=== PATIENT | female | born 1945 | race Caucasian/White ===

== ENCOUNTER 2024-02-08 08:08 | Observation (INO) ==
[2024-02-08] MEDS: SODIUM CHLORIDE 1,000 ML IV ONE ×2 (08:20→09:45)
--- NOTE | 2024-02-08 08:28 | ED.PDOC ---
General ED Provider: Dr. CHUCK BROWN MD Chief Complaint: Dizziness Stated Complaint: 78 y/o fm reported to the ED for dizziness and a cough with yellow sputum x 1 days. Pt denies being around any other sick contacts. Pt denied any LOC or trauma to the head. Pt stated that nothing makes her symptoms worse or better. Pt stated that she has not tried any OTC medications for her cough. Pt denied any hemoptysis with her cough. Pt states that her dizziness is intermittent in nature. Pt denied any sore throat, fever, abdominal pain, n/v/d, CP, SOB, or any other acute symptoms not mentioned previously in the HPI. Pt's VS are stable. Pt's GCS 15. Time Seen by Provider: 02/08/24 08:09 Mode of Arrival: Ambulance Information Source: Patient and EMT Exam Limitations: No limitations Nursing and Triage Documentation Reviewed and Agree: Yes Does Patient Take Opioids?: No Is Patient Opioid Naive?: No What is Opioid Naive?: *Opioid Naive implies the patient is not already taking opioids or not chronically receiving opioids on a daily basis. *PRN dosing is not "usually" associated with tolerance. *Patients are at higher risk of over-sedation and aspiration. Is Patient Opioid Tolerant?: No What is Opioid Tolerant?: *Opioid Tolerance implies less than the expected response to an opioid. *Acquired tolerance is defined by the patient taking 60mg of oral morphine daily (or equianalgesic dose of another opioid) for 1 week or more. *Often associated with chronic pain. *May take more than usual dose to achieve desired pain control. Review of Systems Review Of Systems Constitutional: Reports No symptoms Eyes: Reports No symptoms Ears, Nose, Mouth, Throat: Reports No symptoms Respiratory: Reports Cough Cardiac: Reports Other (Dizziness) GI: Reports No symptoms : Reports No symptoms Musculoskeletal: Reports No symptoms Skin: Reports No symptoms Neurological: Reports No symptoms Endocrine: Reports No symptoms Hematologic/Lymphatic: Reports No symptoms All Other Systems: Reviewed and Negative PFSH Female Reproductive History Menstrual Hx Hysterectomy: No Hx Tubal Ligation: No Physical Exam Physical Exam Appearance: Reports Well-appearing, Well-nourished and Thin Ill-appearing: None Pain Distress: None Eyes: Reports JED, EOMI and Conjunctiva clear ENT: Reports Ears normal, Nose normal and Oropharynx normal Neck: Supple Respiratory: Reports Airway patent and Breath sounds clear; Denies Wheezes Cardiovascular: Reports RRR and Pulses normal GI/: Reports Soft and Nontender Musculoskeletal: Reports Normal strength, ROM intact and Other (L mid glut ttp, arom prom BL LE, popliteal and DP pulses 2+/3 BL, no swelling, no deformity) Skin: Reports Warm, Dry and Normal color Neurological: Reports Sensation intact and Motor intact Psychiatric: Reports Affect appropriate and Mood appropriate Course Course 02/08/24 08:29 02/08/24 08:29 Orders, Labs, Meds: Lab Review 02/08/24 02/08/24 08:20 08:29 WBC 8.31 RBC 4.42 Hgb 12.5 Hct 39.7 MCV 89.8 MCH 28.3 MCHC 31.5 L RDW Coeff of Priscilla 13.6 Plt Count 230 Immature Gran % (Auto) 0.5 Neut % (Auto) 69.6 Lymph % (Auto) 21.3 [place] % (Auto) 7.6 Eos % (Auto) 0.6 Baso % (Auto) 0.4 Neut # (Auto) 5.8 Lymph # (Auto) 1.8 [place] # (Auto) 0.6 Eos # (Auto) 0.1 Baso # (Auto) 0.0 Immature Gran # (Auto) 0.0 Sodium 139.2 Potassium 3.86 Chloride 105.3 Carbon Dioxide 27.7 Anion Gap 10.06 BUN 19.6 H Creatinine 0.73 Estimated GFR (MDRD) 77.00 BUN/Creatinine Ratio 26.84 Glucose 152.3 H Lactic Acid 1.15 Calcium 8.18 L Magnesium 1.80 Total Bilirubin 0.43 AST 27.1 ALT 19.1 Alkaline Phosphatase 74.9 Troponin I Pending Total Protein 6.42 Albumin 3.83 Globulin 2.59 Albumin/Globulin Ratio 1.47 Influ A Molecular Assay Negative by naat Influ B Molecular Assay Negative by naat SARS CoV-2 RNA Rapid LEONARDO Negative Orders Category Date Time Status EKG-(ED ONLY) Stat CARDIO 02/08/24 08:15 Completed ED MANUFACTURING ASSISTANT APPLIED .ONCE EMERGENCY 02/08/24 08:15 Active CBC W/ AUTO DIFF Stat LAB 02/08/24 08:29 Completed COMPREHENSIVE METABOLIC PANEL Stat LAB 02/08/24 08:29 Results FLU A/B MOLECULAR Stat LAB 02/08/24 08:20 Completed LACTIC ACID Stat LAB 02/08/24 08:29 Completed MAGNESIUM Stat LAB 02/08/24 08:29 Results SARS COV-2 RNA RAPID LEONARDO Stat LAB 02/08/24 08:20 Completed TROPONIN I Stat LAB 02/08/24 08:29 Results URINALYSIS C & S IF INDICATED Stat LAB 02/08/24 08:17 Uncollected Sodium Chloride 0.9% [Sodium Chloride] 1,000 ml Meds 02/08/24 08:15 Active IV BOLUS CHEST, 1V AP ONLY Stat RADS 02/08/24 08:[address] HEAD W/O CONTRAST Stat RADS 02/08/24 08:17 Ordered Medications Generic Name Dose Route Start Last Admin Trade Name Freq PRN Reason Stop Dose Admin Sodium Chloride 1,000 mls @ 1,000 mls/hr 02/08/24 08:15 02/08/24 08:20 Sodium Chloride IV 02/08/24 09:14 1,000 mls/hr BOLUS ONE Administration Vital Signs: Temp Pulse Resp BP Pulse Ox 02/08/24 08:09 97.6 F 75 20 181/85 H 100 ROMIE Risk Score ROMIE Risk Score: Risk Score Odds of by 30D 0 0.1 (0.1-0.2) 1 0.3 (0.2-0.3) 2 0.4 (0.3-0.5) 3 0.7 (0.6-0.9) 4 1.2 (1.0-1.5) 5 2.2 (1.9-2.6) 6 3.0 (2.5-3.6) 7 4.8 (3.8-6.1) Physician Progress Note: 78 y/o fm reported to the ED for dizziness and a cough with yellow sputum x 1 days. Pt denies being around any other sick contacts. Pt denied any LOC or trauma to the head. Pt stated that nothing makes her symptoms worse or better. Pt stated that she has not tried any OTC medications for her cough. Pt denied any hemoptysis with her cough. Pt states that her dizziness is intermittent in nature. Pt denied any sore throat, fever, abdominal pain, diarrhea, CP, SOB, or any other acute symptoms not mentioned previously in the HPI. Pt's VS are stable. Pt's GCS 15. -Will order CT of the head for pt's dizziness. NIH score is zero. -Will order IV NS 1 L bolus for dehydration. -Will order EKG, trop, and baseline labs. -Will order CXR for cough to rule out PNA or other pathology. -CBC unremarkable. -EKG shows normal sinus rhythm with a rate of 70 bpm. [place] interval 132 ms, QRS 80 ms, QTc 481 ms, minimal voltage for LVH, and no acute ST elevations noted. This was interpreted by the ER physician. -BUN 19 showing that patient slightly dehydrated. We have given the patient normal saline bolus. Otherwise CMP unremarkable. -Chest x-ray shows no acute cardiopulmonary disease. This was interpreted by the ER physician. -Patient's troponin is negative. -CT of the head shows no acute pathology or hemorrhage. -Will run IV 1 L normal saline at 125 mL an hour for gentle hydration. -0900: Spoke to hospitalist at [facility], Ameya Sahu NP who is agreed to admit the patient for dehydration. I have given the patient's current treatment and any pending labs. Ameya has agreed to accept accept this patient for observation inpatient. Discharge Plan Discharge Patient Disposition: PLACED OBSERVATION Discharge Problem: Dizziness, Dehydration, Essential hypertension Did you review [place] [employer] for ALL controlled substances?: Not Applicable ED Provider: CHUCK BROWN Condition: Stable
[2024-02-08 08:32] LABS: BASOPHILS % (AUTO) 0.4 % (0.0-3.0); EOSINOPHILS # (AUTO) 0.1 K/ul (0.0-0.7); EOSINOPHILS % (AUTO) 0.6 % (0.0-7.0); HEMATOCRIT 39.7 % (37.0-47.0); HEMOGLOBIN 12.5 g/dl (12.0-16.0); IMMATURE GRANULOCYTE % (AUTO) 0.5 % (0.0-5.0); LYMPHOCYTES # (AUTO) 1.8 K/uL (0.60-3.4); LYMPHOCYTES % (AUTO) 21.3 (10.0-50.0); MEAN CORPUSCULAR HEMOGLOBIN 28.3 pg (27.0-31.0); MEAN CORPUSCULAR HGB CONC 31.5 (31.8-35.4); MEAN CORPUSCULAR VOLUME 89.8 fl (81.0-99.0); MONOCYTES # (AUTO) 0.6 K/uL (0.4-2.0); MONOCYTES % (AUTO) 7.6 (0-10); NEUTROPHILS # (AUTO) 5.8 K/ul (2.0-6.9); NEUTROPHILS % (AUTO) 69.6 % (42.2-75.2); PLATELET COUNT 230 10^3/uL (140-440); RDW COEFFICIENT OF VARIATION 13.6 % (11.6-14.8); RED BLOOD COUNT 4.42 10^6/ul (4.20-5.40); WHITE BLOOD COUNT 8.31 K/ul (4.6-10.2)
[2024-02-08 08:46] LABS: SARS COV-2 RNA RAPID NAAT NEGATIVE (NEGATIVE)
[2024-02-08 08:48] LABS: MOLECULAR FLU A NEGATIVE BY NAAT (NEGATIVE); MOLECULAR FLU B NEGATIVE BY NAAT (NEGATIVE)
[2024-02-08 08:48] LABS: ALANINE AMINOTRANSFERASE 19.1 U/L (0-35); ALBUMIN 3.83 g/dL (3.5-5.0); ALKALINE PHOSPHATASE 74.9 U/L (53-141); ASPARTATE AMINO TRANSFERASE 27.1 U/L (14-36); BILIRUBIN,TOTAL 0.43 mg/dL (0.2-1.3); BLOOD UREA NITROGEN 19.6 mg/dL (7-17); CALCIUM 8.18 mg/dL (8.4-10.2); CARBON DIOXIDE 27.7 mmol/L (22-30.0); CHLORIDE 105.3 mmol/L (98-107); CREATININE 0.73 mg/dL (0.60-1.30); GLUCOSE 152.3 mg/dL (74-106); POTASSIUM 3.86 mmol/L (3.5-5.1); SODIUM 139.2 mmol/L (134.5-145); TOTAL PROTEIN 6.42 g/dL (6.3-8.2)
--- NOTE | 2024-02-08 08:59 | DI ---
EXAM: CHEST RADIOGRAPH TECHNIQUE: Single frontal chest radiograph. HISTORY: Cough. COMPARISON: 03/19/2023 FINDINGS: The patient is mildly leaning and rotated to the right. EKG leads project over the chest. The lungs are hyperexpanded, as before. No pulmonary infiltrate is identified. No pleural effusion or pneumothorax is seen. Stable mild biapical pleural thickening. Borderline cardiomegaly. No acute displaced rib fractures are identified. IMPRESSION: 1. No acute findings in the chest.
[2024-02-08 09:02] LABS: TROPONIN I < 0.012 ng/ml (0.0000-0.120)
--- NOTE | 2024-02-08 09:15 | CT ---
EXAMINATION: HEAD CT WITHOUT CONTRAST HISTORY: Dizziness. TECHNIQUE: Noncontrast CT of the brain was performed with images acquired from skull base to vertex. 2-D coronal and sagittal reformatted images were obtained from the axial source images. Contrast Dose: None. CT Dose Reduction Techniques Performed: Yes. COMPARISON: None. FINDINGS: No intracranial hemorrhage or significant extra-axial fluid collection. No region of abnormal low attenuation in the brain. Huddleston white differentiation is preserved. No mass effect or midline shift. No hydrocephalus. Bilateral cataract surgery. The visualized mastoid air cells and paranasal sinuses are clear. IMPRESSION: 1. No acute intracranial findings. All CT scans are performed using dose optimization techniques as appropriate to the performed exam an d include at least one of the following: Automated exposure control, adjustment of the mA and/or kV according t o size, and the use of iterative reconstruction technique.
[2024-02-08 09:31] LABS: BILIRUBIN,URINE Negative (NEGATIVE); CLARITY,URINE Clear (CLEAR); COLOR,URINE Yellow (YELLOW); GLUCOSE, URINE (UA) Negative (NEGATIVE); KETONES,URINE Trace (NEGATIVE); LEUKOCYTE ESTERASE ,URINE Negative (NEGATIVE); NITRITE,URINE Negative (NEGATIVE); PH,URINE 7.5 (5-9); PROTEIN,URINE Negative (NEGATIVE); URINE, BLOOD Negative (NEGATIVE); UROBILINOGEN,URINE 0.2 (0.2)
[2024-02-08] MEDS: ANTIVERT PO STA (10:20)
[2024-02-08 13:58] VITALS: BMI 17.0
[2024-02-08] MEDS ORDERED: TYLENOL PO PRN (14:52)
[2024-02-08] MEDS ORDERED: ZOFRAN 4 MG/2 ML IVP PRN (14:52)
[2024-02-08] MEDS ORDERED: SODIUM CHLORIDE 1,000 ML IV SCH (15:00)
[2024-02-08] MEDS: COMPAZINE PO PRN (16:16)
--- NOTE | 2024-02-08 17:03 | PCM ---
Date of Service Date Seen by Provider: 02/08/24 Time Seen by Provider: 14:15 Admit Day/Time Admission Date: 02/08/24 Reason for Admission Chief Complaint: DEHYDRATION, DIZZINESS Hospital Provider Hospital Provider[facility] History of Present Illness History of Present Illness: 78 yo female presented to the ER with dizziness. States she has been dizzy since yesterday. Reports she was concerned she had Covid but no other symptoms reported. Covid negative in ER. Denies history of vertigo. States she has been nauseated because of the dizziness and unable to eat. Describes the dizziness as the room spinning. Improves when she closes her eyes. Received meclizine in the ER without relief. No acute findings on lab work other than a minimally elevated BUN. BP was elevated in ER and continues to be elevated on admission. No previous history of HTN. Denies any chest pain, palpitations, sob, blurry vision, fever, chills, or other symptoms. Admitted to med/surg observation. Case Discussed With Case Discussed With: Patient's case was discussed with the ER Physicians, Dr. Garcia. [facility] Medical History Ovarian cyst, left N83.202 - Unspecified ovarian cyst, left side (ICD-10) Sciatica, left side M54.32 - Sciatica, left side (ICD-10) Age related osteoporosis M81.0 - Age-related osteoporosis without current pathological fracture (ICD- 10) Diverticulosis K57.90 - Diverticulosis of intestine, part unspecified, without perforation or abscess without bleeding (ICD-10) Hyperlipidemia E78.5 - Hyperlipidemia, unspecified (ICD-10) Family History Other No pertinent family history Social History Smoking and tobacco status: Never smoker Allergies Allergies Allergy/AdvReac Type Severity Reaction Status Date / Time Sulfa (Sulfonamide AdvReac Verified 02/08/24 08:13 Antibiotics) Current Medications Home Medications multivitamin 1 cap PO DAILY 07/10/15 [History Confirmed 02/08/24 Last Taken Unknown] psyllium husk 6 gram oral powder packet (Konsyl Sugar-Free) 1 packet PO DAILY 07/10/15 [History Confirmed 02/08/24 Last Taken Unknown] aspirin 81 mg capsule 81 mg PO DAILY 02/08/24 [History Confirmed 02/08/24 Last Taken Unknown] calcium carbonate 1,200 mg PO DAILY 02/08/24 [History Confirmed 02/08/24 Last Taken Unknown] cholecalciferol (vitamin D3) 125 mcg (5,000 unit) tablet (Vitamin D3) 125 mcg PO DAILY 02/08/24 [History Confirmed 02/08/24 Last Taken Unknown] magnesium 200 mg tablet 400 mg PO EVERY OTHER DAY 02/08/24 [History Confirmed 02/08/24 Last Taken Unknown] rosuvastatin 20 mg tablet 20 mg PO BEDTIME 02/08/24 [History Confirmed 02/08/24 Last Taken Unknown] vitamins A,C,B-jajj-uyfndp 2,148 mcg-113 mg-45 mg-17.4 mg tablet (Eye Multivitamin) 2 tab PO DAILY 02/08/24 [History Confirmed 02/08/24 Last Taken Unknown] Home Acetaminophen (Acetaminophen 325 Mg Tablet) 650 mg PO Q4H PRN PRN Reason: Mild Pain Aspirin (Aspirin 81 Mg Tablet.Dr) 81 mg PO DAILYWM2 EZRA Cholecalciferol (Cholecalciferol (Vitamin D3) 1,000 Unit (25 Mcg) Tablet) 5,000 unit PO DAILY EZRA Multivitamins (Multivitamin 1 Tab) 1 tab PO DAILY EZRA Ondansetron HCl (Ondansetron Hcl/Pf 4 Mg/2 Ml Sdv) 4 mg IVP Q6H PRN PRN Reason: Nausea / Vomiting Prochlorperazine Maleate (Prochlorperazine Maleate 10 Mg Tablet) 5 mg PO TID PRN PRN Reason: Vertigo Last Admin: 02/08/24 16:16 Dose: 5 mg Psyllium Hydrophilic Mucilloid (Psyllium Seed 6 Gm Packet) 1 packet PO 1200 EZRA Rosuvastatin Calcium (Rosuvastatin Calcium 10 Mg Tablet) 20 mg PO BEDTIME EZRA Discontinued Medications Sodium Chloride (Sodium Chloride) 1,000 mls @ 1,000 mls/hr IV BOLUS ONE Stop: 02/08/24 09:14 Last Infusion: 02/08/24 09:48 Dose: Infused Sodium Chloride (Sodium Chloride) 1,000 mls @ 125 mls/hr IV .Q8H ONE Stop: 02/08/24 17:13 Last Admin: 02/08/24 09:45 Dose: 125 mls/hr Lisinopril (Lisinopril 10 Mg Tablet) 20 mg PO ONCE ONE Stop: 02/08/24 16:51 Meclizine HCl (Meclizine Hcl 25 Mg Tablet) 25 mg PO ONCE STA Stop: 02/08/24 10:12 Last Admin: 02/08/24 10:20 Dose: 25 mg Opioid Naive vs. Tolerant Does Patient Take Opioids?: No Is Patient Opioid Naive?: Yes What is Opioid Naive?: *Opioid Naive implies the patient is not already taking opioids or not chronically receiving opioids on a daily basis. *PRN dosing is not "usually" associated with tolerance. *Patients are at higher risk of over-sedation and aspiration. Is Patient Opioid Tolerant?: No What is Opioid Tolerant?: *Opioid Tolerance implies less than the expected response to an opioid. *Acquired tolerance is defined by the patient taking 60mg of oral morphine daily (or equianalgesic dose of another opioid) for 1 week or more. *Often associated with chronic pain. *May take more than usual dose to achieve desired pain control. Review of Systems Constitutional: Reports No symptoms Head: Reports Normocephalic Eyes: Reports No symptoms Ears: Reports No symptoms Nose: Reports No symptoms Mouth: Reports No symptoms Throat: Reports No symptoms Cardiovascular: Reports No symptoms Respiratory: Reports No symptoms Gastrointestinal: Reports No symptoms Genitourinary: Reports No Symptoms Musculoskeletal: Reports No symptoms Endocrine: Reports No symptoms Hematology: Reports No symptoms Immunology: Reports No symptoms Neurological: Reports Dizziness Psychiatric: Reports No symptoms Physical examination Most Recent Vital Signs: Most Recent Vital Signs Temperature 97.8 F 02/08/24 13:25 Temperature Source Temporal Artery Scan 02/08/24 13:25 Temperature Source Infrared 02/08/24 08:09 Pulse Rate 88 02/08/24 13:25 Respiratory Rate 18 02/08/24 13:25 Blood Pressure 181/85 H 02/08/24 08:09 Blood Pressure Left Arm 171/76 02/08/24 13:25 Blood Pressure Position Sitting 02/08/24 13:25 O2 Sat by Pulse Oximetry 100 02/08/24 13:25 Oxygen Delivery Method Room Air 02/08/24 16:00 Height 5 ft 3 in 02/08/24 13:25 Weight 43.7 kg 02/08/24 13:25 Telemetry Type Bedside Monitor 02/08/24 13:00 Telemetry Monitoring Started 02/08/24 13:00 Telemetry Heart Rate 78 02/08/24 13:00 EKG FL Interval 0.13 02/08/24 13:00 EKG QRS Interval 0.06 02/08/24 13:00 Telemetry Strip Reading SR 02/08/24 13:00 Appearance: Positive No Apparent Distress, Alert and Oriented x3 and Thin Skin: Positive Warm and Good Turgor HEENT: Positive Normocephalic and PERRLA Neck: Positive Supple and Midline Trachea Chest/Lungs: Positive Symmetrical With Equal Breath Sounds, Clear to Auscultation Bilaterally and Good Air Movement all 4 Lung Nolan Heart: Positive RRR and Pulses Normal GI/: Positive Soft, Nontender, Bowel Sounds Normal and No Distention Musculoskeletal: Positive Normal Gait and Station Extremities: Positive Intact Peripheral Pulses, Stable Joints Without Laxity and Good ROM in All Joints Neurological: Positive Sensation Intact, Motor intact, Alert, Oriented and Muscle Strength 5/5 in Upper and Lower Extremities Bilaterally Labs This Visit Labs This Visit: Labs This Visit 02/08/24 02/08/24 02/08/24 08:20 08:29 09:25 WBC 8.31 RBC 4.42 Hgb 12.5 Hct 39.7 MCV 89.8 MCH 28.3 MCHC 31.5 L RDW Coeff of Priscilla 13.6 Plt Count 230 Immature Gran % (Auto) 0.5 Neut % (Auto) 69.6 Lymph % (Auto) 21.3 [place] % (Auto) 7.6 Eos % (Auto) 0.6 Baso % (Auto) 0.4 Neut # (Auto) 5.8 Lymph # (Auto) 1.8 [place] # (Auto) 0.6 Eos # (Auto) 0.1 Baso # (Auto) 0.0 Immature Gran # (Auto) 0.0 Sodium 139.2 Potassium 3.86 Chloride 105.3 Carbon Dioxide 27.7 Anion Gap 10.06 BUN 19.6 H Creatinine 0.73 Estimated GFR (MDRD) 77.00 BUN/Creatinine Ratio 26.84 Glucose 152.3 H Lactic Acid 1.15 Calcium 8.18 L Magnesium 1.80 Total Bilirubin 0.43 AST 27.1 ALT 19.1 Alkaline Phosphatase 74.9 Troponin I < 0.012 Total Protein 6.42 Albumin 3.83 Globulin 2.59 Albumin/Globulin Ratio 1.47 Urine Color Yellow Urine Clarity Clear Urine pH 7.5 Ur Specific [place] 1.025 Urine Protein Negative Urine Glucose (UA) Negative Urine Ketones Trace H Urine Blood Negative Urine Nitrite Negative Urine Bilirubin Negative Urine Urobilinogen 0.2 Ur Leukocyte Esterase Negative Influ A Molecular Assay Negative by naat Influ B Molecular Assay Negative by naat SARS CoV-2 RNA Rapid LEONARDO Negative Imaging Imaging: EXAMINATION: HEAD CT WITHOUT CONTRAST FINDINGS: No intracranial hemorrhage or significant extra-axial fluid collection. No region of abnormal low attenuation in the brain. Huddleston white differentiation is preserved. No mass effect or midline shift. No hydrocephalus. Bilateral cataract surgery. The visualized mastoid air cells and paranasal sinuses are clear. IMPRESSION: 1. No acute intracranial findings. EXAM: CHEST RADIOGRAPH FINDINGS: The patient is mildly leaning and rotated to the right. EKG leads project over the chest. The lungs are hyperexpanded, as before. No pulmonary infiltrate is identified. No pleural effusion or pneumothorax is seen. Stable mild biapical pleural thickening. Borderline cardiomegaly. No acute displaced rib fractures are identified. IMPRESSION: 1. No acute findings in the chest. Review Statement Review Statement: I have independently reviewed and interpreted the labs/EKGs/imaging that were ordered by the ER provider. I have reviewed all outside records that are available currently in our EMR including imaging/notes/labs from previous visits. Plan Plan: 1. Dizziness - unknown etiology, attempted meclizine - no relief, will add compazine prn, NS@75mL/hr initially - d/c due to hypertension noted 2. Hypertension - no previous history, will trial dose of lisinopril 20 mg PO - subject to change if ineffective 3. Hyperlipidemia - chronic, continue home medications DVT Prophylaxis: Ambulation Time Spent: Greater than 80 minutes spent with patient, 50% of the time spent with this patient was devoted to counseling and coordination of care. [facility] minutes spent discussing advance care planning. Disposition: Admit to: Med/Surg Observation Full Code Discussed Plan of Care with Dr. Pedro Garrido. Medications Medication Orders: Medications Ordered Category Date Time Status Acetaminophen [Tylenol] Meds 02/08/24 14:52 Active 650 mg PO Q4H PRN Aspirin [Aspirin EC] Meds 02/09/24 07:30 Active 81 mg PO DAILYWM2 Cholecalciferol (Vitamin D3) [Vitamin D] Meds 02/09/24 09:00 Active 5,000 unit PO DAILY Multivitamin [Multivitamin Tablet] Meds 02/09/24 09:00 Active 1 tab PO DAILY Ondansetron HCl/Pf [Zofran 4 mg/2 ml] Meds 02/08/24 14:52 Active 4 mg IVP Q6H PRN Prochlorperazine Maleate [Compazine] Meds 02/08/24 14:52 Active 5 mg PO TID PRN Psyllium Seed [Metamucil] Meds 02/09/24 12:00 Active 1 packet PO 1200 Rosuvastatin Calcium [Crestor] Meds 02/08/24 21:00 Active 20 mg PO BEDTIME
[2024-02-08] MEDS: ZESTRIL PO ONE (17:23)
[2024-02-08] MEDS: CRESTOR PO SCH (20:19)
[2024-02-08] MEDS: HYDRALAZINE HCL IVP PRN (21:07)
[2024-02-09 05:37] LABS: BASOPHILS % (AUTO) 0.2 % (0.0-3.0); EOSINOPHILS # (AUTO) 0.1 K/ul (0.0-0.7); EOSINOPHILS % (AUTO) 0.5 % (0.0-7.0); HEMATOCRIT 41.8 % (37.0-47.0); HEMOGLOBIN 13.1 g/dl (12.0-16.0); IMMATURE GRANULOCYTE % (AUTO) 0.3 % (0.0-5.0); LYMPHOCYTES # (AUTO) 2.2 K/uL (0.60-3.4); MEAN CORPUSCULAR HEMOGLOBIN 27.9 pg (27.0-31.0); MEAN CORPUSCULAR HGB CONC 31.3 (31.8-35.4); MEAN CORPUSCULAR VOLUME 89.1 fl (81.0-99.0); MONOCYTES # (AUTO) 1.3 K/uL (0.4-2.0); MONOCYTES % (AUTO) 12.2 (0-10); NEUTROPHILS # (AUTO) 6.8 K/ul (2.0-6.9); NEUTROPHILS % (AUTO) 65.8 % (42.2-75.2); PLATELET COUNT 255 10^3/uL (140-440); RED BLOOD COUNT 4.69 10^6/ul (4.20-5.40); WHITE BLOOD COUNT 10.38 K/ul (4.6-10.2)
[2024-02-09 05:53] LABS: ALBUMIN 3.99 g/dL (3.5-5.0); ALKALINE PHOSPHATASE 75.8 U/L (53-141); ASPARTATE AMINO TRANSFERASE 29.2 U/L (14-36); BILIRUBIN,TOTAL 0.61 mg/dL (0.2-1.3); BLOOD UREA NITROGEN 15.5 mg/dL (7-17); CALCIUM 8.57 mg/dL (8.4-10.2); CARBON DIOXIDE 26.9 mmol/L (22-30.0); CHLORIDE 105.3 mmol/L (98-107); CREATININE 0.85 mg/dL (0.60-1.30); GLUCOSE 103.3 mg/dL (74-106); POTASSIUM 3.6 mmol/L (3.5-5.1); SODIUM 138.1 mmol/L (134.5-145); TOTAL PROTEIN 6.61 g/dL (6.3-8.2)
[2024-02-09] MEDS: COZAAR PO SCH (08:23)
[2024-02-09] MEDS: ASPIRIN EC PO SCH (08:23)
[2024-02-09] MEDS: MULTIVITAMIN TABLET PO SCH (08:24)
[2024-02-09] MEDS: VITAMIN D PO SCH (08:25)
[2024-02-09] MEDS ORDERED: COZAAR PO SCH (09:00)
[2024-02-09] MEDS ORDERED: NON-FORMULARY MEDICATION (Aspirin 81 mg capsule) PO SCH (09:00)
[2024-02-09] MEDS ORDERED: MULTIVITAMIN TABLET PO SCH (09:00)
[2024-02-09] MEDS: METAMUCIL PO SCH (12:22)
[2024-02-09] MEDS: COZAAR PO ONE (12:23)
[2024-02-09] MEDS ORDERED: NORVASC PO ONE (14:05)
--- NOTE | 2024-02-09 16:24 | PCM.PROG ---
Date/Time Seen Date Seen by Provider: 02/09/24 Time Seen by Provider: 08:30 Provider Provider: MORIS KIRAN, [facility] Chief Complaint Chief Complaint: DEHYDRATION, DIZZINESS Subjective Subjective: Feeling some better today. BP has increased again this am. Dizziness still present at this time. Objective Appearance: Positive No Apparent Distress and Alert and Oriented x3 Chest/Lungs: Positive Symmetrical With Equal Breath Sounds, Clear to Auscultati on Bilaterally and Good Air Movement all 4 Lung Nolan Heart: Positive RRR and Pulses Normal GI/: Positive Soft, Nontender, Bowel Sounds Normal and No Distention Musculoskeletal: Positive Not Examined Neurological: Positive Sensation Intact, Motor intact, Alert and Oriented Vital Signs Vital Signs: Vital Signs: Last 24 Hours 02/08/24 17:00 02/08/24 17:41 02/08/24 17:42 Temperature 98.1 F Temperature Source Temporal Artery Scan Pulse Rate 84 Pulse Rate [Apical] Respiratory Rate 16 Blood Pressure 183/85 H Blood Pressure Mean 117 Blood Pressure Location Left Arm Blood Pressure Position O2 Sat by Pulse Oximetry 99 Oxygen Delivery Method Room Air Room Air Room Air Telemetry Type Telemetry Monitoring Telemetry Heart Rate EKG VT Interval EKG QRS Interval Telemetry Strip Reading 02/08/24 17:59 02/08/24 19:00 02/08/24 19:55 Temperature Temperature Source Pulse Rate Pulse Rate [Apical] Respiratory Rate Blood Pressure Blood Pressure Mean Blood Pressure Location Blood Pressure Position O2 Sat by Pulse Oximetry Oxygen Delivery Method Room Air Room Air Telemetry Type Bedside Monitor Telemetry Monitoring Started Telemetry Heart Rate 91 EKG VT Interval 0.12 EKG QRS Interval 0.08 Telemetry Strip Reading SR 02/08/24 20:52 02/08/24 22:00 02/08/24 22:00 Temperature 98.9 F Temperature Source Temporal Artery Scan Pulse Rate 99 Pulse Rate [Apical] Respiratory Rate 18 Blood Pressure 136/47 L Blood Pressure Mean 76 Blood Pressure Location Right Arm Blood Pressure Position Supine O2 Sat by Pulse Oximetry 96 Oxygen Delivery Method Room Air Room Air Room Air Telemetry Type Telemetry Monitoring Telemetry Heart Rate EKG VT Interval EKG QRS Interval Telemetry Strip Reading 02/08/24 23:00 02/09/24 00:00 02/09/24 01:00 Temperature Temperature Source Pulse Rate Pulse Rate [Apical] Respiratory Rate Blood Pressure Blood Pressure Mean Blood Pressure Location Blood Pressure Position O2 Sat by Pulse Oximetry Oxygen Delivery Method Room Air Room Air Room Air Telemetry Type Telemetry Monitoring Telemetry Heart Rate EKG VT Interval EKG QRS Interval Telemetry Strip Reading 02/09/24 01:00 02/09/24 02:00 02/09/24 02:00 Temperature 97.6 F Temperature Source Temporal Artery Scan Pulse Rate 70 Pulse Rate [Apical] Respiratory Rate 15 Blood Pressure 119/49 L Blood Pressure Mean 72 Blood Pressure Location Left Arm Blood Pressure Position Supine O2 Sat by Pulse Oximetry 97 Oxygen Delivery Method Room Air Room Air Telemetry Type Bedside Monitor Telemetry Monitoring Started Telemetry Heart Rate 73 EKG VT Interval 0.14 EKG QRS Interval 0.08 Telemetry Strip Reading SR 02/09/24 03:00 02/09/24 04:00 02/09/24 05:00 Temperature Temperature Source Pulse Rate Pulse Rate [Apical] Respiratory Rate Blood Pressure Blood Pressure Mean Blood Pressure Location Blood Pressure Position O2 Sat by Pulse Oximetry Oxygen Delivery Method Room Air Room Air Room Air Telemetry Type Telemetry Monitoring Telemetry Heart Rate EKG VT Interval EKG QRS Interval Telemetry Strip Reading 02/09/24 05:29 02/09/24 06:00 02/09/24 07:00 Temperature 97.2 F L Temperature Source Temporal Artery Scan Pulse Rate 87 Pulse Rate [Apical] Respiratory Rate 16 Blood Pressure 119/58 L Blood Pressure Mean 78 Blood Pressure Location Left Arm Blood Pressure Position Supine O2 Sat by Pulse Oximetry 96 Oxygen Delivery Method Room Air Room Air Telemetry Type Bedside Monitor Telemetry Monitoring Telemetry Heart Rate 77 EKG VT Interval 0.12 EKG QRS Interval 0.08 Telemetry Strip Reading NSR 02/09/24 07:00 02/09/24 08:00 02/09/24 08:00 Temperature Temperature Source Pulse Rate Pulse Rate [Apical] 92 Respiratory Rate 16 Blood Pressure Blood Pressure Mean Blood Pressure Location Blood Pressure Position O2 Sat by Pulse Oximetry Oxygen Delivery Method Room Air Room Air Room Air Telemetry Type Telemetry Monitoring Telemetry Heart Rate EKG VT Interval EKG QRS Interval Telemetry Strip Reading 02/09/24 08:16 02/09/24 09:00 02/09/24 09:42 Temperature Temperature Source Pulse Rate 94 Pulse Rate [Apical] Respiratory Rate Blood Pressure 167/66 H 171/75 H Blood Pressure Mean Blood Pressure Location Right Arm Right Arm Blood Pressure Position Supine Sitting O2 Sat by Pulse Oximetry Oxygen Delivery Method Room Air Telemetry Type Telemetry Monitoring Telemetry Heart Rate EKG VT Interval EKG QRS Interval Telemetry Strip Reading 02/09/24 09:42 02/09/24 10:00 02/09/24 10:00 Temperature 99.3 F Temperature Source Temporal Artery Scan Pulse Rate 101 H 93 Pulse Rate [Apical] Respiratory Rate 16 Blood Pressure 172/70 H 150/63 H Blood Pressure Mean 92 Blood Pressure Location Right Arm Right Arm Blood Pressure Position Standing Supine O2 Sat by Pulse Oximetry 97 Oxygen Delivery Method Room Air Room Air Telemetry Type Telemetry Monitoring Telemetry Heart Rate EKG VT Interval EKG QRS Interval Telemetry Strip Reading 02/09/24 11:00 02/09/24 12:00 02/09/24 13:00 Temperature Temperature Source Pulse Rate Pulse Rate [Apical] Respiratory Rate Blood Pressure Blood Pressure Mean Blood Pressure Location Blood Pressure Position O2 Sat by Pulse Oximetry Oxygen Delivery Method Room Air Room Air Room Air Telemetry Type Telemetry Monitoring Telemetry Heart Rate EKG VT Interval EKG QRS Interval Telemetry Strip Reading 02/09/24 13:00 02/09/24 14:00 02/09/24 14:00 Temperature 98 F Temperature Source Temporal Artery Scan Pulse Rate 100 Pulse Rate [Apical] Respiratory Rate 16 Blood Pressure 171/69 H Blood Pressure Mean 103 Blood Pressure Location Right Arm Blood Pressure Position Supine O2 Sat by Pulse Oximetry 97 Oxygen Delivery Method Room Air Room Air Telemetry Type Bedside Monitor Telemetry Monitoring Telemetry Heart Rate 110 H EKG VT Interval 0.14 EKG QRS Interval 0.09 Telemetry Strip Reading Sinus Tachycardia 02/09/24 15:00 02/09/24 16:00 Temperature Temperature Source Pulse Rate Pulse Rate [Apical] Respiratory Rate Blood Pressure Blood Pressure Mean Blood Pressure Location Blood Pressure Position O2 Sat by Pulse Oximetry Oxygen Delivery Method Room Air Room Air Telemetry Type Telemetry Monitoring Telemetry Heart Rate EKG VT Interval EKG QRS Interval Telemetry Strip Reading Lab Results Lab Results: Lab Results: Last 24 Hours 02/09/24 05:29 WBC 10.38 H RBC 4.69 Hgb 13.1 Hct 41.8 MCV 89.1 MCH 27.9 MCHC 31.3 L RDW Coeff of Priscilla 14.0 Plt Count 255 Immature Gran % (Auto) 0.3 Neut % (Auto) 65.8 Lymph % (Auto) 21.0 [place] % (Auto) 12.2 H Eos % (Auto) 0.5 Baso % (Auto) 0.2 Neut # (Auto) 6.8 Lymph # (Auto) 2.2 [place] # (Auto) 1.3 Eos # (Auto) 0.1 Baso # (Auto) 0.0 Immature Gran # (Auto) 0.0 Sodium 138.1 Potassium 3.60 Chloride 105.3 Carbon Dioxide 26.9 Anion Gap 9.50 BUN 15.5 Creatinine 0.85 Estimated GFR (MDRD) 64.00 BUN/Creatinine Ratio 18.23 Glucose 103.3 Calcium 8.57 Total Bilirubin 0.61 AST 29.2 ALT 19.0 Alkaline Phosphatase 75.8 Total Protein 6.61 Albumin 3.99 Globulin 2.62 Albumin/Globulin Ratio 1.52 Additional Comments Additional Comments: I have independently reviewed and interpreted the labs/EKGs/imaging ordered during this hospital stay. I have reviewed outside records that are available in our EMR that pertain to medical stay including imaging/notes/labs from previous visits. Active Medications Active Medications: Medications Generic Name Dose Route Start Last Admin Trade Name Freq PRN Reason Stop Dose Admin Acetaminophen 650 mg 02/08/24 14:52 Acetaminophen 325 Mg Tablet PO Q4H PRN Mild Pain Alprazolam 0.25 mg 02/09/24 15:23 Alprazolam 0.25 Mg Tablet PO BID PRN Dizziness Aspirin 81 mg 02/09/24 07:30 02/09/24 08:23 Aspirin 81 Mg Tablet. PO 81 mg DAILYWM2 EZRA Administration Cholecalciferol 5,000 unit 02/09/24 09:00 02/09/24 08:25 Cholecalciferol (Vitamin D3) 1,000 Unit (25 Mcg) Tablet PO 5,000 unit DAILY EZRA Administration Hydralazine HCl 10 mg 02/08/24 20:42 02/08/24 21:07 Hydralazine Hcl 20 Mg/Ml Sdv IVP 10 mg Q6H PRN Administration Hypertension Losartan Potassium 25 mg 02/09/24 09:00 02/09/24 08:23 Losartan Potassium 25 Mg Tablet PO 25 mg DAILY EZRA Administration Multivitamins 1 tab 02/09/24 09:00 02/09/24 08:24 Multivitamin 1 Tab PO 1 tab DAILY EZRA Administration Ondansetron HCl 4 mg 02/08/24 14:52 Ondansetron Hcl/Pf 4 Mg/2 Ml Sdv IVP Q6H PRN Nausea / Vomiting Prochlorperazine Maleate 5 mg 02/08/24 14:52 02/09/24 08:39 Prochlorperazine Maleate 10 Mg Tablet PO 5 mg TID PRN Administration Vertigo Psyllium Hydrophilic Mucilloid 1 packet 02/09/24 12:00 02/09/24 12:22 Psyllium Seed 6 Gm Packet PO 1 packet 1200 EZRA Administration Rosuvastatin Calcium 20 mg 02/08/24 21:00 02/08/24 20:19 Rosuvastatin Calcium 10 Mg Tablet PO 20 mg BEDTIME EZRA Administration Plan Plan: 1. Dizziness - Unchanged, worsens with hypertension, adjusting BP meds, compazine prn, orthostatic VS negative 2. Hypertension - no previous history, lisinopril ineffective, hydralazine given around 2100 last night and dropped BP appropriately, losartan 25 mg given this am with minimal response, additional 25 mg given around noon and has lowered BP well - still reporting dizziness on standing 3. Hyperlipidemia - chronic, continue home medications DVT Prophylaxis: Ambulation Review Statement Review Statement: I have personally discussed and reviewed the patient's visit/currently labs/imaging/decision making with Dr. Garrido, my supervising attending. Greater that 50 minutes spent with patient, 50% of the time spent with this patient was devoted to counseling and coordination of care.
[2024-02-09] MEDS: XANAX PO PRN (21:05)
[2024-02-10 05:49] LABS: BASOPHILS % (AUTO) 0.4 % (0.0-3.0); EOSINOPHILS # (AUTO) 0.1 K/ul (0.0-0.7); EOSINOPHILS % (AUTO) 0.9 % (0.0-7.0); HEMATOCRIT 40.8 % (37.0-47.0); HEMOGLOBIN 12.9 g/dl (12.0-16.0); IMMATURE GRANULOCYTE % (AUTO) 0.2 % (0.0-5.0); LYMPHOCYTES # (AUTO) 2.5 K/uL (0.60-3.4); LYMPHOCYTES % (AUTO) 31.2 (10.0-50.0); MEAN CORPUSCULAR HEMOGLOBIN 28.1 pg (27.0-31.0); MEAN CORPUSCULAR HGB CONC 31.6 (31.8-35.4); MEAN CORPUSCULAR VOLUME 88.9 fl (81.0-99.0); MONOCYTES % (AUTO) 12.3 (0-10); NEUTROPHILS # (AUTO) 4.4 K/ul (2.0-6.9); PLATELET COUNT 257 10^3/uL (140-440); RDW COEFFICIENT OF VARIATION 14.1 % (11.6-14.8); RED BLOOD COUNT 4.59 10^6/ul (4.20-5.40); WHITE BLOOD COUNT 8.04 K/ul (4.6-10.2)
[2024-02-10 06:04] LABS: ALANINE AMINOTRANSFERASE 17.2 U/L (0-35); ALBUMIN 3.91 g/dL (3.5-5.0); ALKALINE PHOSPHATASE 74.3 U/L (53-141); ASPARTATE AMINO TRANSFERASE 24.9 U/L (14-36); BILIRUBIN,TOTAL 0.65 mg/dL (0.2-1.3); BLOOD UREA NITROGEN 19.1 mg/dL (7-17); CALCIUM 8.76 mg/dL (8.4-10.2); CARBON DIOXIDE 24.9 mmol/L (22-30.0); CHLORIDE 104.8 mmol/L (98-107); CREATININE 0.83 mg/dL (0.60-1.30); GLUCOSE 105.4 mg/dL (74-106); POTASSIUM 3.64 mmol/L (3.5-5.1); SODIUM 139.3 mmol/L (134.5-145); TOTAL PROTEIN 6.52 g/dL (6.3-8.2)
[2024-02-10 09:53] VITALS: BP 169/80; PULSE 92; RESP 15; TEMP 98.3
--- NOTE | 2024-02-10 10:12 | DCSUM ---
Admission Date Admission Date: 02/08/24 Discharge Date Discharge Date: 02/10/24 Admission Diagnosis Admission Diagnosis: 1. Dizziness 2. Hypertension 3. Hyperlipidemia Discharge Diagnosis Discharge Diagnosis: 1. Dizziness - Resolved 2. Hypertension - Improving 3. Hyperlipidemia - Chronic, stable Hospital Provider Hospital Provider: MORIS KIARN, [facility] Summary of History and Physical Summary of History and Physical: 78 yo female presented to the ER with dizziness. States she has been dizzy since yesterday. Reports she was concerned she had Covid but no other symptoms reported. Covid negative in ER. Denies history of vertigo. States she has been nauseated because of the dizziness and unable to eat. Describes the dizziness as the room spinning. Improves when she closes her eyes. Received meclizine in the ER without relief. No acute findings on lab work other than a minimally elevated BUN. BP was elevated in ER and continues to be elevated on admission. No previous history of HTN. Denies any chest pain, palpitations, sob, blurry vision, fever, chills, or other symptoms. Admitted to med/surg observation. Hospital Course Subjective: During stay, dizziness remained if patient's BP was elevated and resolved when lower. Attempted lisinopril initially without relief. Hydralazine was given overnight and dropped patient too low. Started on losartan yesterday and BP has been in accepted range with SBP below 140s. Dizziness resolved at this time. Patient also voiced being anxious and likely driving factor to high BP. Given xanax 0.25 mg and felt much better. Meclizine was given for dizziness which was ineffective. Compazine was given and patient reported feeling better following. Sent with Rx for Xanax, losartan, and compazine. Discussed to take BP twice a day over the next few weeks. Follow-up with PCP next week. Appearance: Pleasant, No Apparent Distress and Alert HEENT: MMM and Supple CVS: No Murmur Abdomen: Soft, Non-Tender and No Distention Respiratory: No Dyspnea Extremities: No Edema Vital Signs: Most Recent Vital Signs Temperature 98.3 F 02/10/24 09:52 Temperature Source Temporal Artery Scan 02/10/24 09:52 Temperature Source Infrared 02/08/24 08:09 Pulse Rate 92 02/10/24 09:52 Respiratory Rate 15 02/10/24 09:52 Blood Pressure 169/80 H 02/10/24 09:52 Blood Pressure Mean 109 02/10/24 09:52 Blood Pressure Left Arm 171/76 02/08/24 13:25 Blood Pressure Location Left Arm 02/10/24 09:52 Blood Pressure Position Sitting 02/10/24 09:52 O2 Sat by Pulse Oximetry 97 02/10/24 09:52 Oxygen Delivery Method Room Air 02/10/24 09:52 Height 5 ft 3 in 02/08/24 13:25 Weight 43.7 kg 02/08/24 13:25 Telemetry Type Bedside Monitor 02/10/24 07:00 Telemetry Monitoring Continues 02/10/24 07:00 Irregular Telemetry Rate (Approximate) 70-80 BPM 02/10/24 01:00 Telemetry Heart Rate 91 02/10/24 07:00 EKG TX Interval 0.14 02/10/24 07:00 EKG QRS Interval 0.08 02/10/24 07:00 Telemetry Strip Reading NSR 02/10/24 07:00 Imaging: EXAMINATION: HEAD CT WITHOUT CONTRAST FINDINGS: No intracranial hemorrhage or significant extra-axial fluid collection. No region of abnormal low attenuation in the brain. Huddleston white differentiation is preserved. No mass effect or midline shift. No hydrocephalus. Bilateral cataract surgery. The visualized mastoid air cells and paranasal sinuses are clear. IMPRESSION: 1. No acute intracranial findings. EXAM: CHEST RADIOGRAPH FINDINGS: The patient is mildly leaning and rotated to the right. EKG leads project over the chest. The lungs are hyperexpanded, as before. No pulmonary infiltrate is identified. No pleural effusion or pneumothorax is seen. Stable mild biapical pleural thickening. Borderline cardiomegaly. No acute displaced rib fractures are identified. Lab Results Last 24 Hours: 02/10/24 05:26 WBC 8.04 RBC 4.59 Hgb 12.9 Hct 40.8 MCV 88.9 MCH 28.1 MCHC 31.6 L RDW Coeff of Priscilla 14.1 Plt Count 257 Immature Gran % (Auto) 0.2 Neut % (Auto) 55.0 Lymph % (Auto) 31.2 Branch % (Auto) 12.3 H Eos % (Auto) 0.9 Baso % (Auto) 0.4 Neut # (Auto) 4.4 Lymph # (Auto) 2.5 Branch # (Auto) 1.0 Eos # (Auto) 0.1 Baso # (Auto) 0.0 Immature Gran # (Auto) 0.0 Sodium 139.3 Potassium 3.64 Chloride 104.8 Carbon Dioxide 24.9 Anion Gap 13.24 BUN 19.1 H Creatinine 0.83 Estimated GFR (MDRD) 66.00 BUN/Creatinine Ratio 23.01 Glucose 105.4 Calcium 8.76 Total Bilirubin 0.65 AST 24.9 ALT 17.2 Alkaline Phosphatase 74.3 Total Protein 6.52 Albumin 3.91 Globulin 2.61 Albumin/Globulin Ratio 1.49 Discharge Instructions Discharge Planning: Discharge Planning > 40 minutes If patient is discharged with left ventricular systolic dysfunction: NA Discharged with a beta fracisco? [] If no, why not? [] Discharged with an ry/arb? [] If no, why not? []\ Diagnosis: Hypertension, Dizziness, Anxiety Diet: Cardiac Activity: as tolerated Follow-up with PCP next week Medications: Losartan 25 mg daily (High blood pressure) Xanax 0.25 mg twice a day as needed for anxiety Compazine 5 mg may take up to 3 times a day as needed for dizziness Discharge Medications: Medications at Discharge (Home Meds & RX) multivitamin 1 cap PO DAILY 07/10/15 psyllium husk 6 gram oral powder packet (Konsyl Sugar-Free) 1 packet PO DAILY 07/10/15 aspirin 81 mg capsule 81 mg PO DAILY 02/08/24 calcium carbonate 1,200 mg PO DAILY 02/08/24 cholecalciferol (vitamin D3) 125 mcg (5,000 unit) tablet (Vitamin D3) 125 mcg PO DAILY 02/08/24 magnesium 200 mg tablet 400 mg PO EVERY OTHER DAY 02/08/24 rosuvastatin 20 mg tablet 20 mg PO BEDTIME 02/08/24 vitamins A,C,V-pair-okvsgc 2,148 mcg-113 mg-45 mg-17.4 mg tablet (Eye Multivitam in) 2 tab PO DAILY 02/08/24 Discharge Plan Discharge Discharge Orders: Discharge Patient (ONCE); Ordered 02/10/24 Ordered By: MAKSIM ETIENNE Activity Restrictions/Additional Instructions: Diagnosis: Hypertension, Dizziness, Anxiety Diet: Cardiac Activity: as tolerated Follow-up with PCP next week Medications: Losartan 25 mg daily (High blood pressure) Xanax 0.25 mg twice a day as needed for anxiety Compazine 5 mg may take up to 3 times a day as needed for dizziness Instructions: Hypertension (GEN) Patient Disposition: HOME WITH FAMILY CARE Prescriptions: New losartan 25 mg Tablet 25 mg PO DAILY Qty: 30 0RF prochlorperazine maleate 10 mg Tablet 5 mg PO TID PRN (Reason: dizziness or vertigo) Qty: 20 0RF alprazolam 0.25 mg Tablet 0.25 mg PO BID PRN (Reason: anxiety) Qty: 20 0RF Continued multivitamin 1 CAP capsule 1 cap PO DAILY Konsyl Sugar-Free 1 PACKET powder in packet 1 packet PO DAILY rosuvastatin 20 mg tablet 20 mg PO BEDTIME aspirin 81 mg capsule 81 mg PO DAILY calcium carbonate 600 mg calcium (1,500 mg) tablet 1,200 mg PO DAILY Eye Multivitamin 2,148 mcg-113 mg-45 mg-17.4mg tablet 2 tab PO DAILY Rx Instructions: administer with a meal cholecalciferol (vitamin D3) [Vitamin D3] 125 mcg (5,000 unit) tablet 125 mcg PO DAILY magnesium 200 mg tablet 400 mg PO EVERY OTHER DAY Did you review [place] for ALL controlled substances?: No Discussed opioids are addictive and Narcan is available by prescription or from pharmacy.: No Condition: Stable
== END 2024-02-10 10:49 | disposition home or self-care (01) ==
LOC: SCU 08:08 → ED 08:08 → SCU 13:18
PROVIDERS: ADMIT Hospitalist; ATTEND Nurse Practitioner Family
DX: I10 Essential (primary) hypertension; R42 Dizziness and giddiness; R11.0 Nausea; F41.9 Anxiety disorder, unspecified; Z20.822 Contact with and (suspected) exposure to COVID-19; Z51.81 Encounter for therapeutic drug level monitoring; Z79.899 Other long term (current) drug therapy; E78.5 Hyperlipidemia, unspecified; E86.0 Dehydration